=== PATIENT | male | born 1990 ===

== ENCOUNTER 2023-03-09 06:42 | Emergency (ER) | payer BC, OTHER, SELFPAY ==
[2023-03-09] MEDS ORDERED: NA CHLORIDE 0.9% 1,000 ML ONE (07:35)
[2023-03-09] MEDS ORDERED: MORPHINE 4 MG/ML SYR ONE (07:35)
[2023-03-09] MEDS ORDERED: ONDANSETRON 4 MG/2 ML VIAL ONE (07:35)
[2023-03-09 07:39] LABS: Hematocrit 44.3 % (39.6-49.0); Lymphocytes % 17.1 % (15.3-44.8); MCV 89.6 fL (80-100); MPV 7.8 fL (7.6-11.3); Platelets 301 thou/uL (152-406); RBC Red Blood Cell Count 4.94 M/uL (4.33-5.43)
[2023-03-09 07:55] LABS: Albumin 4.2 g/dL (3.4-5.0); Bilirubin Total 1.4 mg/dL (0.2-1.0); Protein, Total 7.2 g/dL (6.4-8.2)
--- NOTE | 2023-03-09 08:20 | RAD REPORT ---
EXAM DESCRIPTION: CTAbdomen Pelvis W Contrast - 03/09/2023 8:11 am CLINICAL HISTORY: ABD PAIN COMPARISON: No comparisons TECHNIQUE: CT of the abdomen and pelvis was performed with IV contrast. All CT scans are performed using dose optimization technique as appropriate and may include automated exposure control or mA/KV adjustment according to patient size. FINDINGS: Lower chest: No acute abnormality. Liver: No acute abnormality or suspicious lesions. Biliary: No biliary ductal dilatation. Stomach: No significant focal abnormality. Duodenum: No significant focal abnormality. Pancreas: No significant abnormality. Spleen: No significant abnormality. Adrenal: No suspicious lesions. Kidney/ureter: Mild left-sided hydronephrosis secondary to a 3 mm stone just beyond the left UPJ. Sma ll left renal calculi also present. Retroperitoneum: No retroperitoneal adenopathy. Vascular: No aneurysm. Bowel: No significant focal abnormality. Normal appendix. Peritoneum: No ascites or free air. Bladder: Grossly unremarkable. Reproductive: No adnexal masses. Bones: No acute fracture. Other: n/a IMPRESSION: Mild left-sided hydronephrosis secondary to a 3 mm stone in the left proximal ureter.
[2023-03-09 09:19] LABS: Specific Gravity > 1.030 (1.005-1.030); Urine Bacteria <20 /HPF (<20); Urine Bilirubin NEGATIVE (Negative); Urine Blood 2+ (Negative); Urine Clarity Clear (Clear); Urine Color Colorless (Yellow); Urine Glucose NEGATIVE (Negative); Urine Mucus Slight /HPF (None Seen); Urine Protein NEGATIVE (Negative); Urine RBC >50 /HPF (None Seen); Urine Urobilinogen Normal (Normal); Urine pH 6.5 (5.0-7.0)
--- NOTE | 2023-03-09 09:32 | ER ---
Nurse's Notes [facility] Name: Turner James Age: 32 yrs Sex: Male : 1990 Arrival Date: 03/09/2023 Time: 06:42 Bed 4 Private MD: Diagnosis: Ureterolithiasis, kidney stone, renal colic Presentation: 03/09 06:52 Chief complaint: Patient states: LLQ pain of 9 with nausea,diarrhea and chills,onset pf1 yesterday. Coronavirus screen: Vaccine status: Patient reports receiving the 1st dose of the Covid vaccine. [employer] Client denies travel out of the [place] in the last 14 days. Client presents with at least one sign or symptom that may indicate coronavirus-19. Ebola Screen: Patient negative for fever greater than or equal to 101.5 degrees Fahrenheit, and additional compatible Ebola Virus Disease symptoms. Initial Sepsis Screen: Does the patient meet any 2 criteria? No. Patient's initial sepsis screen is negative. Does the patient have a suspected source of infection? No. Patient's initial sepsis screen is negative. Risk Assessment: Do you want to hurt yourself or someone else? Patient reports no desire to harm self or others. 06:52 Method Of Arrival: Ambulatory pf1 06:52 Acuity: DAVIDA 3 pf1 Historical: - Allergies: 06:56 No Known Allergies; pf1 - PMHx: 06:56 None; pf1 - PSHx: 06:56 None; pf1 - Immunization history:: Adult Immunizations up to date, Client reports receiving the 1st dose of the Covid vaccine, Last tetanus immunization: < 10 years ago Flu vaccine is not up to date. - Social history:: Smoking status: Reported history of juuling and/or vaping. Patient/guardian denies using alcohol, street drugs. Screenin:25 [facility] ED Fall Risk Assessment (Adult) History of falling in the last 3 months, ko1 including since admission No falls in past 3 months (0 pts) Confusion or Disorientation No (0 pts) Intoxicated or Sedated No (0 pts) Impaired Gait No (0 pts) Mobility Assist Device Used No (0 pt) Altered Elimination No (0 pt) Score/Fall Risk Level 0 - 2 = Low Risk Oriented to surroundings, Maintained a safe environment, Educated pt \T\ family on fall prevention, incl call for assistance when getting out of bed, Assessed \T\ reinforced patient's understanding of fall precautions, Provided non-skid footwear, Hourly rounding (assess needs \T\ fall precautionary measures) done, Used ambulatory aids as needed (educated on \T\ assisted with), Used gait belt as appropriate. Abuse screen: Denies threats or abuse. Denies injuries from another. Nutritional screening: No deficits noted. Tuberculosis screening: No symptoms or risk factors identified. Assessment: 07:25 General: Appears in no apparent distress. uncomfortable, Behavior is calm, cooperative, ko1 appropriate for age. Pain: Complains of pain in abdomen. Neuro: No deficits noted. Cardiovascular: No deficits noted. Respiratory: No deficits noted. GI: Abdomen is flat, non-distended, Reports nausea. : No deficits noted. EENT: No deficits noted. Derm: No deficits noted. Musculoskeletal: No deficits noted. Vital Signs: 06:52 BP 140 / 96; Pulse 58; Resp 16; Temp 97.7; Pulse Ox 100% on R/A; Weight 65.77 kg; pf1 Height 5 ft. 6 in. ; Pain 9/10; 08:24 BP 155 / 106; Pulse 78; Resp 16; Pulse Ox 99% ; ko1 09:15 BP 115 / 96; Pulse 72; Resp 16; Pulse Ox 100% ; ko1 06:52 Body Mass Index 23.40 (65.77 kg, 167.64 cm) pf1 06:52 Pain Scale: Adult pf1 ED Course: 06:47 Patient arrived in ED. kj1 06:56 Triage completed. pf1 07:11 Diana Sung MD is Attending Physician. sp3 07:17 Cheryl Dennis, BIJAL is Primary Nurse. ko1 07:25 Inserted saline lock: 20 gauge in left antecubital area, using aseptic technique. Blood ko1 collected. 07:36 CBC with Diff Sent. ko1 07:36 CMP Sent. ko1 07:36 Lipase Sent. ko1 07:37 Patient has correct armband on for positive identification. Bed in low position. Call ko1 light in reach. Side rails up X 1. Provided Education on: NA. Pulse ox on. NIBP on. Door closed. Noise minimized. Lights dimmed. Warm blanket given. 08:12 CT Abd/Pelvis - IV Contrast Only In Process Unspecified. EDMS 08:58 Urinalysis w/ reflexes Sent. ko1 09:31 Chuck Mcleod MD is Referral Physician. sp3 09:40 No provider procedures requiring assistance completed. IV discontinued, intact, ko1 bleeding controlled, No redness/swelling at site. Pressure dressing applied. Administered Medications: 07:30 Drug: NS 0.9% IV 1000 ml Route: IV; Rate: 1 bolus; Site: left antecubital; ko1 07:31 Drug: Ondansetron IVP 4 mg Route: IVP; Site: left antecubital; ko1 07:36 Drug: morphine IVP or IV 4 mg Route: IVP; Infused Over: 4 mins; Site: left antecubital; ko1 Medication: 09:40 VIS not applicable for this client. ko1 Outcome: :31 Discharge ordered by . sp3 09:40 Discharged to home ambulatory. ko1 09:40 Condition: improved 09:40 Discharge instructions given to patient, Instructed on discharge instructions, follow up and referral plans. medication usage, Demonstrated understanding of instructions, follow-up care, medications, Prescriptions given X 1. 09:41 Patient left the ED. ko1 Signatures: Dispatcher [employer] EDWA Corrine Buckley kj1 Diana Sung MD MD sp3 Cheryl Dennis RN RN ko1 Latasha Marmolejo, BIJAL RN pf1 Corrections: (The following items were deleted from the chart) 06:58 06:56 Social history: Smoking status: Patient denies any tobacco usage or history of. pf1 Patient/guardian denies using alcohol, street drugs, pf1
--- NOTE | 2023-03-09 09:32 | EDPHYS ---
Physician Documentation [facility] Name: Turner James Age: 32 yrs Sex: Male : 1990 Arrival Date: 03/09/2023 Time: 06:42 Bed 4 Private MD: ED Physician Diana Sung HPI: 03/09 07:33 This 32 yrs old Male presents to ER via Ambulatory with complaints of Diarrhea, sp3 Abdominal Pain, Nausea. 07:33 32-year-old male with no past medical history no past surgical history presents with sp3 generalized abdominal pain with increasing amounts in the left lower quadrant for the last 24 hours or so. Patient also states she has had 45 episodes of blood-tinged diarrhea and episodes of nausea without emesis. He denies any other symptoms including fever, URI symptoms, neck pain, chest pain, shortness of breath, back pain, flank pain, dysuria, other bleeding, rash, known sick contacts, potential bad food, travel history, or any other signs or symptoms on review of systems at this time. Pain is described as sharp and cramping in nature. He also states he "may be dehydrated" since he works in [employer] in his exposed to the heat quite a bit. He states his urine output however has not significantly changed.. Historical: - Allergies: 06:56 No Known Allergies; pf1 - PMHx: 06:56 None; pf1 - PSHx: 06:56 None; pf1 - Immunization history:: Adult Immunizations up to date, Client reports receiving the 1st dose of the Covid vaccine, Last tetanus immunization: < 10 years ago Flu vaccine is not up to date. - Social history:: Smoking status: Reported history of juuling and/or vaping. Patient/guardian denies using alcohol, street drugs. ROS: 07:34 Constitutional: Negative for fever, chills, and weight loss, Eyes: Negative for injury, sp3 pain, redness, and discharge, ENT: Negative for injury, pain, and discharge, Neck: Negative for injury, pain, and swelling, Cardiovascular: Negative for chest pain, palpitations, and edema, Respiratory: Negative for shortness of breath, cough, wheezing, and pleuritic chest pain, Back: Negative for injury and pain, MS/Extremity: Negative for injury and deformity, Skin: Negative for injury, rash, and discoloration, Neuro: Negative for headache, weakness, numbness, tingling, and seizure, Psych: Negative for depression, anxiety, suicide ideation, homicidal ideation, and hallucinations, Allergy/Immunology: Negative for hives, rash, and allergies, Endocrine: Negative for neck swelling, polydipsia, polyuria, polyphagia, and marked weight changes, Hematologic/Lymphatic: Negative for swollen nodes, abnormal bleeding, and unusual bruising. 07:34 All other systems are negative. Exam: 07:34 Constitutional: This is a well developed, well nourished patient who is awake, alert, sp3 and in no acute distress. Head/Face: Normocephalic, atraumatic. Eyes: Pupils equal round and reactive to light, extra-ocular motions intact. Lids and lashes normal. Conjunctiva and sclera are non-icteric and not injected. Cornea within normal limits. Periorbital areas with no swelling, redness, or edema. Neck: Trachea midline, no thyromegaly or masses palpated, and no cervical lymphadenopathy. Supple, full range of motion without nuchal rigidity, or vertebral point tenderness. No Meningismus. Chest/axilla: Normal chest wall appearance and motion. Nontender with no deformity. No lesions are appreciated. Cardiovascular: Regular rate and rhythm with a normal S1 and S2. No gallops, murmurs, or rubs. Normal PMI, no JVD. No pulse deficits. Respiratory: Lungs have equal breath sounds bilaterally, clear to auscultation and percussion. No rales, rhonchi or wheezes noted. No increased work of breathing, no retractions or nasal flaring. Back: No spinal tenderness. No costovertebral tenderness. Full range of motion. Skin: Warm, dry with normal turgor. Normal color with no rashes, no lesions, and no evidence of cellulitis. MS/ Extremity: Pulses equal, no cyanosis. Neurovascular intact. Full, normal range of motion. Neuro: Awake and alert, GCS 15, oriented to person, place, time, and situation. Cranial nerves II-XII grossly intact. Motor strength 5/5 in all extremities. Sensory grossly intact. Cerebellar exam normal. Normal gait. Psych: Awake, alert, with orientation to person, place and time. Behavior, mood, and affect are within normal limits. 07:34 Abdomen/GI: Patient has left lower quadrant abdominal pain moderate in severity without rebound or guarding or peritoneal signs. Bowel sounds are hypoactive. There is no CVA tenderness.. Vital Signs: 06:52 BP 140 / 96; Pulse 58; Resp 16; Temp 97.7; Pulse Ox 100% on R/A; Weight 65.77 kg; pf1 Height 5 ft. 6 in. ; Pain 9/10; 08:24 BP 155 / 106; Pulse 78; Resp 16; Pulse Ox 99% ; ko1 09:15 BP 115 / 96; Pulse 72; Resp 16; Pulse Ox 100% ; ko1 06:52 Body Mass Index 23.40 (65.77 kg, 167.64 cm) pf1 06:52 Pain Scale: Adult pf1 MDM: 07:21 Patient medically screened. sp3 07:35 Data reviewed: vital signs, nurses notes, lab test result(s), radiologic studies. ED sp3 course: 32-year-old male with left lower quadrant abdominal pain. Differential diagnosis is broad and includes diverticulitis, diverticulosis, gastroenteritis, kidney stone, UTI, pyelonephritis, other colitis, among others. I am not highly suspicious for sepsis, shock, vascular abnormality including AAA or dissection, or any other critical findings at this time. Vital signs are normal. Work-up will include laboratory values, urine analysis, CT scan of the abdomen pelvis, and administration of IV fluids, ondansetron IV and morphine IV as needed symptoms. Disposition to be based on patient course and work-up.. 09:30 ED course: Patient has 3 mm kidney stone in the left proximal ureter without sp3 significant hydronephrosis. Urinalysis demonstrates RBCs without evidence of infection. Remainder of blood work demonstrates no significant abnormality. Patient's pain is controlled and we will safely discharge him home with urine strainer and urology follow-up along with NSAIDs for pain control.. 03/09 07:21 Order name: CBC with Diff; Complete Time: 08:51 sp3 03/09 07:21 Order name: CMP; Complete Time: 08:51 sp3 03/09 07:21 Order name: Lipase; Complete Time: 08:51 sp3 03/09 07:21 Order name: Urinalysis w/ reflexes; Complete Time: 09:27 sp3 03/09 07:21 Order name: CT Abd/Pelvis - IV Contrast Only; Complete Time: 08:51 sp3 03/09 07:21 Order name: IV Saline Lock; Complete Time: 07:36 sp3 03/09 07:21 Order name: Labs collected and sent; Complete Time: 07:36 sp3 Administered Medications: 07:30 Drug: NS 0.9% IV 1000 ml Route: IV; Rate: 1 bolus; Site: left antecubital; ko1 07:31 Drug: Ondansetron IVP 4 mg Route: IVP; Site: left antecubital; ko1 07:36 Drug: morphine IVP or IV 4 mg Route: IVP; Infused Over: 4 mins; Site: left antecubital; ko1 Disposition Summary: 03/09/23 09:31 Discharge Ordered Location: Home sp3 Condition: Stable sp3 Diagnosis - Ureterolithiasis, kidney stone, renal colic sp3 Followup: sp3 - With: Chuck Mcleod MD - When: Upon discharge from the Emergency Department - Reason: Recheck today's complaints Discharge Instructions: - Discharge Summary Sheet sp3 - Kidney Stones sp3 Forms: - Medication Reconciliation Form sp3 - Thank You Letter sp3 - Antibiotic Education sp3 - Prescription Opioid Use sp3 - Patient Portal Instructions sp3 - Leadership Thank You Letter sp3 Prescriptions: - Diclofenac Sodium 75 mg Oral Tablet Sustained Release - take 1 tablet by ORAL route 2 times per day; 30 tablet; Refills: 0, Product sp3 Selection Permitted Signatures: Dispatcher [employer] EDDiana Camilo MD MD sp3 Cheryl Dennis RN RN ko1 Latasha Marmolejo RN RN pf1 Corrections: (The following items were deleted from the chart) 06:58 06:56 Social history: Smoking status: Patient denies any tobacco usage or history of. pf1 Patient/guardian denies using alcohol, street drugs, pf1
[2023-03-09 09:47] VITALS: TEMP 97.7
[2023-03-09 09:50] VITALS: BP 115/96; O2SAT 100
== END 2023-03-09 09:41 | disposition home or self-care (01) ==
LOC: ER 06:42
DX: N20.2 Calculus of kidney with calculus of ureter (principal); N23 Unspecified renal colic
CPT/HCPCS: 36415; 74177; 80053; 81001; 83690; 85025; 96374; 96375; 99284; J2405; J7030; Q9967